=== PATIENT | male | born 1980 | race Caucasian/White ===

== ENCOUNTER 2017-07-04 09:08 | Emergency (ER) | payer OTHER ==
[~2017-07-04] VITALS: Ht 182.8 cm; Wt 81.6 kg
[2017-07-04] MEDS ORDERED: ROBITUSSIN DM 105 ML PO (09:31)
[2017-07-04] MEDS ORDERED: FLONASE ALLERG9.9 ML NAS (09:31)
[2017-07-04] MEDS ORDERED: PREDNISONE10 MG PO (09:31)
[2017-07-04] MEDS ORDERED: CLARITIN10 MG PO (09:31)
== END 2017-07-04 11:24 | disposition home or self-care (01) ==
LOC: ED 09:08
DX: J20.9 Acute bronchitis, unspecified (principal); R03.0 Elevated blood-pressure reading, without diagnosis of hypertension; F17.200 Nicotine dependence, unspecified, uncomplicated; Z88.5 Allergy status to narcotic agent